=== PATIENT | male | born 1975 | race Caucasian/White ===

== ENCOUNTER → 2018-08-28 | Outpatient (CLI) | payer OTHER ==
--- NOTE | 2018-08-28 15:16 | PCVCIMAG ---
APPROVED REPORT Study performed: 08/28/2018 13:47:27 EXAM: Comprehensive 2D, Doppler, and color-flow Echocardiogram Patient Location: Echo lab Room #: 2Status: routine BSA: 2.26 HR: 86 bpmBP: 134/98 mmHg Rhythm: NSR Other Information Study Quality: Good Risk Factors: Cardiac Risk Factors: HTN, Hyperlipidemia Indications Dyspnea Palpitations Chest Pain Hypertension/HDD 2D Dimensions IVSd: 8.04 (7-11mm)LVOT Diam: 20.92 (18-24mm) LVDd: 46.42 mm PWd: 7.53 (7-11mm)Ascending Ao: 23.67 (22-36mm) LVDs: 21.85 (25-40mm) Left Atrium: 34.41 (27-40mm) Aortic Root: 23.22 mm LV Single Plane 4CH: 59.18 % LV Single Plane 2CH: 65.38 % Biplane EF: 63.7 % Volumes Left Atrial Volume (Systole) Single Plane 4CH: 42.67 mLSingle Plane 2CH: 39.43 mL Biplane LA Volume: 42.00 mLLA ESV Index: 19.00 mL/m2 Aortic Valve AoV Peak Gabino.: 1.34 m/s AO Peak Gr.: 7.14 mmHgLVOT Max P.53 mmHg LVOT Max V: 0.94 m/s LISA Vmax: 2.42 cm2 Mitral Valve E/A Ratio: 1.7 MV Decel. Time: 166.67 ms MV E Max Gabino.: 0.81 m/s MV A Gabino.: 0.49 m/s IVRT: 89.97 ms TDI E/Lateral E': 6.23E/Medial E': 8.10 Medial E' Gabino.: 0.10 m/s Lateral E' Gabino.: 0.13 m/s Pulmonary Valve PV Peak Gabino.: 1.28 m/sPV Peak Gr.: 6.51 mmHg Pulmonary Vein P Vein S: 0.44 m/sP Vein A: 0.31 m/s P Vein D: 0.43 m/sP Vein A Dur.: 79.6 msec P Vein S/D Ratio: 1.02 Tricuspid Valve TR Peak Gabino.: 0.94 m/s TR Peak Gr.: 3.53 mmHg TV Vmax: 0.64 m/sPA Pressure: 10.00 mmHg Left Ventricle The left ventricle is normal size. There is normal LV segmental wall motion. There is normal left ventricular wall thickness. Left ventricular systolic function is normal. The left ventricular ejection fraction is within the normal range. LVEF is 60-65%. The left ventricular diastolic function is normal. Right Ventricle The right ventricle is normal size. The right ventricular systolic function is normal. Atria The left atrium size is normal. The right atrium size is normal. Aortic Valve The aortic valve is normal in structure. No aortic regurgitation is present. There is no aortic valvular stenosis. Mitral Valve The mitral valve is normal in structure. There is no mitral valve regurgitation noted. No evidence of mitral valve stenosis. Tricuspid Valve The tricuspid valve is normal in structure. There is no tricuspid valve regurgitation noted. Pulmonic Valve The pulmonary valve is normal in structure. There is no pulmonic valvular regurgitation. Great Vessels The aortic root is normal in size. The ascending aorta is normal in size. Aortic arch is normal in caliber. IVC is normal in size and collapses >50% with inspiration. Pericardium There is no pericardial effusion. There is no pleural effusion. <Conclusion> The left ventricle is normal size. There is normal left ventricular wall thickness. Left ventricular systolic function is normal. The left ventricular diastolic function is normal. The right ventricle is normal size. The left atrium size is normal. The aortic valve is normal in structure. The mitral valve is normal in structure. There is no tricuspid valve regurgitation noted.
--- NOTE | 2018-08-28 15:24 | PCVCIMAG ---
APPROVED REPORT Study performed: 08/28/2018 14:20:44 Exam: Stress Echocardiogram Indication: Chest pain , Dyspnea , Palpitations Patient Location: Echo lab Stress Nurse: Lisette Arguello RN Room #: 2 Status: routine Ht: 6 ft 1 in HR: 86 bpm BP: 134/98 mmHg Rhythm: NSR Medical History Medical History: HTN, Hyperlipidemia Cardiac Risk Factors: HTN, Hyperlipidemia Previous Cardiac Procedures: none Pretest Chest Pain Characteristics: No chest pain Exercise History: Sedentary Procedure The patient underwent an Exercise Stress Test using the Christy Protocol. Blood pressure, heart rate, and EKG were monitored. An Echocardiogram was performed by water filtration technician in four stages in quad fashion. At peak stress, four selected images were obtained and placed side by side with resting images for comparison. Stress Test Details Stress Test: Exercise stress testing was performed using a Christy protocol. HR Resting HR: 86 bpmMax Heart Rate (APMHR): 175 bpm Max HR Achieved: 184 bpmTarget HR (85% APMHR): 148 bpm % of APMHR: 105 Recovery HR: 104 bpm HR response to stress: Normal HR response to stress BP Resting BP: 134/98 mmHg Max BP: 180/90 mmHg Recovery BP: 140/86 mmHg BP response to stress: Normal blood pressure response to stress. ECG Resting ECG: Sinus Rhythm Stress ECG: Sinus Rhythm ST Change: Non-ischemic Arrhythmia: Rare PVCs Recovery ECG: Sinus Rhythm Recovery ST Change: Non-ischemic Recovery Arrhythmia: Rare PVCs Clinical Reason for Termination: Maximal effort Stress Symptoms: none Exercise duration: 9 min 00 sec Highest Stage Achieved: Stage 3: 3.4 mph at 14% grade. Exercise capacity: 10.4 METs Overall Exercise Capacity for Age: Average Angina Score: None No complications. Stress ECG Conclusion The patient exercised according to the CHRISTY protocol for9:00 mins; achieving a work level of 10.4 METS. The resting heart rate of 86 bpm jennifer to a maximum heart rate of 184 bpm. This value represent 105% of the maximal, age-predicted heart rate. The resting blood pressure of 134/98 mmHg, jennifer to a maximum blood pressure of180/90 mmHg. The exercise test was stopped due to fatigue . Pre-Stress Echo The resting Echocardiogram showed normal left ventricular contractility with an estimated Ejection Fraction of about 60%. Normal wall motion in all segments on baseline images. Post-Stress Echo The stress Echocardiogram showed normal left ventricular contractility with an estimated Ejection Fraction of about 65-70%. Normal augmentation of wall motion in all segments on post stress images. Clinical No clinical or ECG evidence for ischemia. Conclusion Clinical Response: Non-ischemic Exercise Capacity: Average Stress ECG Response: Non-ischemic Stress Echo Images: Non-ischemic No clinical, EKG or echocardiographic evidence for ischemia. No echocardiographic evidence for exercise induced ischemia. Normal stress echocardiogram with maximal exercise stress. No prior study available for comparison. <Conclusion> No clinical, EKG or echocardiographic evidence for ischemia. No echocardiographic evidence for exercise induced ischemia. Normal stress echocardiogram with maximal exercise stress.
== END | disposition home or self-care (01) ==
LOC: PCVCIMAG 13:42
PROVIDERS: ATTEND Internal Medicine Cardiovascular Disease
DX: R07.9 Chest pain, unspecified (principal); R00.2 Palpitations; R06.09 Other forms of dyspnea; I10 Essential (primary) hypertension; K21.9 Gastro-esophageal reflux disease without esophagitis
CPT/HCPCS: 93306; 93351